=== PATIENT | female | born 1990 | race Two or more races ===

== ENCOUNTER 2025-05-07 16:12 | Emergency (ER) | payer MEDICAID ==
[~2025-05-07] VITALS: Ht 172.7 cm; Wt 75.0 kg
[2025-05-07 16:16] VITALS: TEMP 98.1
[2025-05-07] MEDS ORDERED: CITA10TA99 PO (16:21)
[2025-05-07] MEDS ORDERED: ASPI-1450 PO (16:21)
[2025-05-07 16:46] LABS: PLATELET COUNT (AUTO) 277 K/uL (150-450); RED BLOOD CELL COUNT(AUTO) 4.32 MIL/uL (4.00-5.20); RED CELL DISTRIBUTION WIDTH 14.0 % (11.5-14.5); WHITE BLOOD COUNT (AUTO) 5.5 K/uL (4.5-11.0)
[2025-05-07 16:54] LABS: CALCIUM, TOTAL 8.5 mg/dL (8.8-10.5); CREATININE 0.51 mg/dL (0.60-1.30); GLOMERULAR FILTR. RATE CALC > 60 mL/min (>60); GLUCOSE,RANDOM 90 mg/dL (70-110); SODIUM SERUM 140 mmol/L (136-145); UREA NITROGEN, BLOOD 21 mg/dL (7-18)
[2025-05-07] MEDS ORDERED: SODIUM CHLORIDE 0.9% 100 ML ONE (17:31)
[2025-05-07] MEDS ORDERED: 0.9% SODIUM CHLORIDE 10 ML SYRINGE IVP ONE (17:31)
[2025-05-07] MEDS ORDERED: IOHEXOL 350 MG/ML 100 ML VIAL ONE (17:31)
[2025-05-07 18:35] VITALS: BP 112/75; PULSE 65; RESP 18; O2SAT 99
== END 2025-05-07 18:45 | disposition home or self-care (01) ==
LOC: EMS 16:12
DX: I63.9 Cerebral infarction, unspecified (principal); Z79.82 Long term (current) use of aspirin; Z79.899 Other long term (current) drug therapy
CPT/HCPCS: 99285; 74177; 80048; 83735; 84703; 85025; 36415; Q9967; J7050